=== PATIENT | male | born 1960 | race Two or more races ===

== ENCOUNTER 2020-12-02 15:52 | Emergency (ER) | payer OTHER ==
[~2020-12-02] VITALS: Ht 190.5 cm; Wt 117.9 kg
[2020-12-02] MEDS ORDERED: ENALAPRIL MALE2.5 MG (16:03)
[2020-12-02] MEDS ORDERED: CHILDREN'S ASPI81 MG (16:03)
[2020-12-02] MEDS ORDERED: CARVEDILOL12.5 MG (16:03)
[2020-12-02] MEDS ORDERED: LIPITOR20 MG (16:04)
== END 2020-12-03 10:35 | disposition home or self-care (01) ==
LOC: ER 15:52
DX: K51.00 Ulcerative (chronic) pancolitis without complications (principal); K52.89 Other specified noninfective gastroenteritis and colitis; R50.9 Fever, unspecified

== ENCOUNTER → 2024-11-23 | Emergency (ER) | payer OTHER ==
[~2024-11-23] VITALS: Ht 190.5 cm; Wt 127.0 kg
[~2024-11-23] MED LIST: ACETAMINOPHEN500 M1 PO; CARVEDILOL12.5 MG; CHILDREN'S ASPI81 MG; ENALAPRIL MALE2.5 MG; GILTUSS COUGH-118 M1 PO; GUAIFEN/DEXTROMETHORPHAN/PE 10 ML BLIST.PACK PO ONE; LIPITOR20 MG; ZITHROMAX TRI-500 MG PO
[2024-11-23 12:52] LABS: BASO % 0.2 % (0.1-1.2); EOS # 0.13 (0.04-0.54); EOS % 2.6 % (0.7-7.0); HEMATOCRIT 40.7 % (40.1-51.0); HEMOGLOBIN 13.8 g/dL (13.7-17.5); LYMPH # 0.66 (1.18-3.74); MEAN CORPUSCULAR HEMOGLOBIN 32.2 pg (25.6-32.2); MONO % 11.9 % (4.7-12.5); NEUT # 3.64 (1.56-6.13); NEUT % 71.9 % (34.0-71.1); PLATELET COUNT 156 K/uL (163-369); RED BLOOD COUNT 4.28 M/uL (4.63-6.08); RED CELL DISTRIBUTION WIDTH 13.1 % (11.6-14.4)
[2024-11-23 13:27] LABS: CALCIUM 9.1 mg/dL (8.5-10.1); CREATININE SERUM 0.96 mg/dL (0.70-1.30); GFR 79.37; POTASSIUM 4.46 mEq/L (3.5-5.1)
[2024-11-23 13:33] LABS: COVID-19 AG NEGATIVE (NEGATIVE); INFLUENZA A AG NEGATIVE (NEGATIVE); INFLUENZA B AG NEGATIVE (NEGATIVE)
== END | disposition left against medical advice (07) ==
LOC: ER 09:44
PROVIDERS: Emergency Medicine
DX: J06.9 Acute upper respiratory infection, unspecified (principal); Z20.822 Contact with and (suspected) exposure to COVID-19; I10 Essential (primary) hypertension; Z53.20 Procedure and treatment not carried out because of patient's decision for unspecified reasons

== ENCOUNTER 2025-04-13 07:41 | Outpatient (CLI) | payer OTHER ==
[~2025-04-13 07:41] MED LIST changes: -GUAIFEN/DEXTROMETHORPHAN/PE 10 ML BLIST.PACK PO ONE
[2025-04-13 08:32] LABS: BASO % 0.2 % (0.1-1.2); EOS # 0.20 (0.04-0.54); EOS % 4.0 % (0.7-7.0); LYMPH # 1.51 (1.18-3.74); LYMPH % 30.1 % (19.3-53.1); MEAN PLATELET VOLUME 12.20 fl (9.4-12.4); MONO # 0.50 (0.24-0.82); MONO % 10.0 % (4.7-12.5); NEUT # 2.79 (1.56-6.13); NEUT % 55.5 % (34.0-71.1); RED CELL DISTRIBUTION WIDTH 12.7 % (11.6-14.4)
[2025-04-13 08:36] LABS: URINE APPEARANCE Clear; URINE BILIRRUBIN Negative (NEGATIVE); URINE BLOOD Negative; URINE COLOR Yellow; URINE GLUCOSE Negative (NEGATIVE); URINE KETONE Negative (NEGATIVE); URINE LEUKOCYTE Negative; URINE NITRATE Negative; URINE PROTEIN Negative (NEGATIVE); URINE UROBILINOGEN 0.2 E.U./dl
[2025-04-13 08:38] LABS: URINE BACTERIA 0 uL (0.0-1933); URINE CAST 0.14 uL (0.0-1.40); URINE EPITHELIAL CELLS 0.4 uL (0.0-38.8); URINE RBC 5.5 uL (0.0-20.8); URINE WBC 1.5 uL (0.0-23.2)
[2025-04-13 09:42] LABS: ALT/SGPT 48.0 U/L (12-78); AST/SGOT 23.0 U/L (15-37); BILIRUBIN TOTAL 1.4 mg/dL (0.3-1.2); BUN CREA RATIO 23.0 (7.0-25.0); CHOL HDL RATIO 2.3 (0-5.0); CREATININE SERUM 0.95 mg/dL (0.70-1.30); GFR 80.33; GLOBULINA 3.2 G/DL (2.4-3.5); GLUCOSE FASTING 95.0 mg/dL (65-100); HDL 48.0 mg/dl (40-60); LDL 40.0 mg/dl (0-130); OSMOLALITY SERUM 283.0 MOSM/KG (275-295); T4 FREE 1.04 NG/ML (0.76-1.46); TSH 0.551 uIU/mL (0.358-3.74); VLDL 19.0 (0-39)
[2025-04-13 09:43] LABS: PROSTATIC SPECIFIC ANTIGEN 0.536 NG/ML (0.010-4.00)
== END 2025-04-13 07:42 | disposition home or self-care (01) ==
LOC: LAB 07:41
DX: D64.9 Anemia, unspecified (principal); R78.89 Finding of other specified substances, not normally found in blood; N39.0 Urinary tract infection, site not specified; E03.9 Hypothyroidism, unspecified; R50.9 Fever, unspecified; R80.9 Proteinuria, unspecified; R70.0 Elevated erythrocyte sedimentation rate

== ENCOUNTER 2025-05-12 09:19 | Outpatient (CLI) | payer OTHER ==
[2025-05-12 12:58] LABS: CREATININE SERUM 0.9 mg/dL (0.70-1.30)
== END 2025-05-12 09:27 | disposition home or self-care (01) ==
LOC: LAB 09:19
DX: R94.4 Abnormal results of kidney function studies (principal)